=== PATIENT | male | born 1950 | race Caucasian/White ===

== ENCOUNTER 2024-04-13 16:35 | Emergency (ER) | payer OTHER, SELFPAY ==
[2024-04-13 16:42] VITALS: BP 155/82
[2024-04-13 17:02] LABS: % Basophils 0.8 % (0-2); % Eosinophils 5.3 % (0-6); % Immature Granulocytes 0.4 % (0-0.5); % Lymphocytes 28.8 % (20.5-51.1); % Monocytes 7.2 % (1.7-9.3); % Neutrophils 57.5 % (42.2-75.2); Absolute Basophils 0.1 10^3/uL (0-0.2); Absolute Eosinophils 0.4 10^3/uL (0-0.7); Absolute Lymphocytes 2.2 10^3/uL (1.2-3.4); Absolute Monocytes 0.6 10^3/uL (0.1-0.6); Absolute Neutrophils 4.4 10^3/uL (1.4-6.5); Hematocrit 38.1 % (39.0-52.0); Hemoglobin 14.3 g/dL (13.0-18.0); Mean Corp Hgb Conc. 37.5 g/dL (33.0-37.0); Mean Corpuscular Hgb 31.2 pg (27.0-31.0); Mean Corpuscular Volume 83.2 fL (80.0-94.0); Mean Platelet Volume 10.4 fL (7.4-10.4); Nucleated Red Blood Cells % 0 % (-); Platelet Count 177 10^3/uL (130-400); Red Blood Cell Count 4.58 10^6/uL (4.70-6.10); Red Cell Dist. Width 12.5 % (11.5-14.5); White Blood Cell Count 7.6 10^3/uL (4.8-10.8)
[2024-04-13 17:20] LABS: ALT (SGPT) 19 U/L (0-50); AST (SGOT) 21 U/L (17-59); Albumin 4.4 g/dl (3.5-5.0); Alkaline Phosphatase 61 U/L (38-126); Blood Urea Nitrogen 19 mg/dl (9-20); Calcium 9.7 mg/dl (8.4-10.2); Carbon Dioxide 24 mmol/L (22-30); Chloride 105 mmol/L (98-107); Glucose 170 mg/dl (70-99); Potassium 4.5 mmol/L (3.5-5.1); Sodium 138 mmol/L (135-145); Total Bilirubin 1.2 mg/dl (0.2-1.3); Total Protein 7.1 g/dl (6.3-8.2); eGFR > 60.00
--- NOTE | 2024-04-13 20:51 | ED.GENMED ---
History of Present Illness
General
Chief Complaint: Skin Problem
Source: patient
Exam Limitations: none
Time Seen by Provider: 04/13/24 19:15
Nursing documentation reviewed up to this point in time: agreed with
Travel History
Have you had any contact with someone who has COVID-19?: No
Do you have any symptoms of coronavirus? Fever > 100 degrees, chills, cough, shortness of breath, sore throat, loss of taste or smell, muscle aches, or headache?: No
History of Present Illness
History of Present Illness:
The patient is a 73-year-old man who reports that his left leg has been swollen for the last 3 days. He denies trauma. He denies pain. He denies numbness and weakness. Patient denies a history of PE and DVT. He denies chest pain or shortness of
breath. Patient reports his primary care doctor encouraged him to come get checked out. Patient reports that he has a large varicose vein behind his left calf which causes problems from time to time.
Past History
Past History
ED Past Medical History: HTN, Hypercholesterolemia and NIDDM
ED Past Surgical History: Other
Social History
Tobacco: Non-smoker
Alcohol: None
Drug: None
Personal: Other
Living: with family
Employment: Other
Review of Systems
Review of Systems
Allergies reviewed?: Yes
All Other Systems: ROS reviewed and negative except as documented in HPI and ROS
Constitutional: Reports no symptoms
EENT: Reports no symptoms
Respiratory: Reports no symptoms
Cardiac: Reports no symptoms
ABD/GI: Reports no symptoms
: Reports no symptoms
Musculoskeletal: Reports edema
Skin: Reports no symptoms
Neurological: Reports no symptoms
Endocrine: Reports no symptoms
Hematologic/Lymphatic: Reports no symptoms
Psychiatric: Reports no symptoms
Phy Exam
Physical Exam
Physical Exam:
Physical Exam
General: no apparent distress, not acutely ill
Neck: supple.
Heart: s1/s2 regular rate and rhythm, no murmur. equal radial pulses. Strong bilateral pedal pulses
Lungs: no acute respiratory distress. clear bilaterally
Abdomen: Soft, nontender
Neuro: alert and oriented. no focal neurological deficits
Skin: No areas of erythema, warmth or skin tenderness of bilateral lower extremities
Psychiatric: well kept. interactive and cooperative
Extremities: 1+ pitting edema of left foot, left ankle and left lower leg. No bony tenderness of left foot, left ankle, or left leg. Large superficial varicose vein left calf. Multiple areas of varicose veins in left ankle
areA. No calf tenderness. No thigh tenderness. No areas of streaking redness or erythema. No sign of trauma. Negative Homans' sign bilaterally. No edema of right lower extremity
Course
Orders/Labs/Results
Orders:
Orders
04/13/24 16:46
US Periph Venous LOWER Ext LT Urgent
Comment:
Reason For Exam: left leg swelling for couple days
04/13/24 16:52
Complete Blood Count/With Diff Urgent
Comprehensive Metabolic Panel Urgent
04/13/24 20:[address] Non Medication Order As Directed
Physician Order: pulse ox please
Abnormal Lab Results
04/13/24
16:52
RBC 4.58 L 10^6/uL
(4.70-6.10)
Hct 38.1 L %
(39.0-52.0)
MCH 31.2 H pg
(27.0-31.0)
MCHC 37.5 H g/dL
(33.0-37.0)
Glucose 170 H mg/dl
(70-99)
04/13/24 16:52
04/13/24 16:52
Vital Signs
Initial and Last Documented VS:
Initial Vital Signs
Temp Pulse Resp BP Pulse Ox
98.0 F 76 16 155/82 159
04/13/24 16:42 04/13/24 16:42 04/13/24 16:42 04/13/24 16:42 04/13/24 16:42
Last Documented Vital Signs
Temp Pulse Resp BP Pulse Ox
98.0 F 74 16 155/82 100
04/13/24 16:42 04/13/24 20:57 04/13/24 16:42 04/13/24 16:42 04/13/24 20:57
MDM/Problems Addressed
Differential Diagnosis Includes:
DVT of left leg, left leg cellulitis, lymphedema of left leg,
MDM/Problems Addressed:
Patient presents with acute swelling of left lower extremity
Acute Exacerbation and/or Progression of Chronic Illness: HTN
*Radiology
Radiology exam reviewed: radiology read reviewed
*Pulse Oximetry
Patient hypoxic: no
*EKG
Interpreted by ED Provider?: NA
*Windows Vmware Engineer Interpretation
Rate: Windows Vmware Engineer- N/A
*Critical Care Note
Total Time (30-74mins, 75-104mins- exclusive of procedures): Not Applicable
Data Reviewed
Review of Other/Old Records Reveals: Testing (Echo reviewed from 2018 which shows no significant abnormality)
Source: patient
Patient Management
Escalation/DeEscalation of care consider admission/obs:
There is no sign of cellulitis of left lower extremity. There is no sign of trauma, tenderness, or bony tenderness to prompt doing an emergent x-ray. Patient's left lower extremity is completely nontender to the touch. He has a negative Homans'
sign. I explained to the patient that ultrasound does not always seed cone picker DVT and that if his left leg remains swollen after 48 hours, that he must talk to his doctor about getting another ultrasound of his left leg. Patient also told to return
immediately with any chest pain or shortness of breath. Patient denies all symptoms of chest pain or shortness of breath.
ED Attending Note
-
Portions of this chart may have been created with voice recognition software.� Occasional wrong word or��sound alike� substitutions may have occurred due to the inherent limitations of voice recognition software.
Discharge Plan
Departure
Patient Disposition: Home (Routine Discharge)
Date of Disposition: 04/13/24
Time of Disposition: 20:48
Patient with high blood pressure during this ER visit?: Yes
Condition: Good
Covid-19: Not Applicable
Discharge Problem:
Edema of left lower extremity
Instructions: Swelling
Prescriptions:
No Action
(DME) blood sugar diagnostic [Blood Glucose Test] 1 EACH strip
1 ea MC QID Qty: 150 3RF
Rx Instructions:
Test glucose before breakfast and two hours after each meal
Referrals:
Rancho Mason MD [Family Provider] -
Activity Restrictions/Additional Instructions:
You must follow-up with your primary care doctor this Saturday to have your left leg re-checked. Your ultrasound today in the emergency department showed no sign of blood clot in your left leg. However, if your left leg continues to be swollen
for the next 2 to 3 days, you will need a repeat ultrasound to be done. We do not see any skin redness to suggest infection.
It is important to elevate your leg with a pillow and apply an ice pack to it at least 3 times a day for at least 5 minutes at a time.
Interventions
Interventions:
*Risk Screen - Suicide Last Done: 04/13/24 20:22
*General Assessment Last Done: 04/13/24 20:57
*Neglect/Abuse Screening Last Done: 04/13/24 20:22
ED- Fall Risk Assessment Last Done: 04/13/24 20:57
*ED COVID-19 Vaccine History Last Done: 04/13/24 16:42
*Nursing Disposition Last Done: 04/13/24 20:57
ED-Skin Assessment Last Done: 04/13/24 20:58
Discharge Date and Time
Discharge Date/Time: 04/13/24 20:58
Print Language: MALAWIAN
== END 2024-04-13 20:58 | disposition home or self-care (01) ==
LOC: EMR 16:35
PROVIDERS: EMERGENCY PHYSICIAN Emergency Medicine; FAMILY PHYSICIAN Internal Medicine Geriatric Medicine
DX: R60.0 Localized edema (principal); I10 Essential (primary) hypertension; E11.9 Type 2 diabetes mellitus without complications; E78.00 Pure hypercholesterolemia, unspecified; I83.92 Asymptomatic varicose veins of left lower extremity; Z79.84 Long term (current) use of oral hypoglycemic drugs; Z88.0 Allergy status to penicillin; Z88.8 Allergy status to other drugs, medicaments and biological substances
CPT/HCPCS: 99284; 80053; 85025; 93971

== ENCOUNTER → 2024-05-28 06:25 | Day surgery (SDC) | payer OTHER, SELFPAY ==
[2024-05-28 11:49] LABS: Glucose - Point of Care 142 mg/dl (70-99)
== END ==
LOC: GI 06:25
PROVIDERS: ATTENDING PHYSICIAN Specialist
DX: Z12.11 Encounter for screening for malignant neoplasm of colon (principal); Z86.010 Personal history of colon polyps; K57.30 Diverticulosis of large intestine without perforation or abscess without bleeding
CPT/HCPCS: G0105; 82962

== ENCOUNTER → 2025-06-29 10:02 | Outpatient (REF) | payer OTHER, SELFPAY | LOC: RAD 10:02 | PROVIDERS: ATTENDING PHYSICIAN Internal Medicine Geriatric Medicine | DX: E04.1 Nontoxic single thyroid nodule (principal) | CPT/HCPCS: 76536 ==